=== PATIENT | female | born 1985 | race African-American/Black ===

== ENCOUNTER → 2019-05-13 | Outpatient (CLI) | payer OTHER ==
[~2019-05-13] MED LIST: ACETAMINOPHEN-1 EAC1 PO; APAP500 PO; BELLADONNA500 ML MC; COLACE 100 MG100 MG PO; FLEXERIL PO; GLUCOPHAGE500 MG PO; HYDROCODONE-AP1 EAC6 PO; IBUPROFEN 800800 M1 PO; IROSPAN 24/6 T1 EACH PO; LANOLIN56 GM; NORTREL1 EAC1 PO; PRENATAL; PRILOSEC 20 MG20 MG PO; SERTRALINE HCL50 MG PO; UNICOMPLEX M TA1 TA1 PO; VITAMIN B-12500 MCG PO; VITAMIN D-32000 UNIT PO; ZOFRAN ODT4 MG PO; ZOLOFT50 MG PO
--- NOTE | 2019-05-16 09:45 | SLE ---
[facility] [place] [address] POLYSOMNOGRAPHY STUDY Name: ABBE MARTIN Room #: [facility]#: [id number] Admission: 05/13/19 Attend Phys: Zacarias Segal MD Discharge: Date of : 87 Report #: [id number] THIS REPORT FOR: //name// CC: Zacarias Feliz MD DATE OF SERVICE: 05/13/2019 SLEEP STUDY ATTENDING PHYSICIAN: Dr. Todd Feliz. The patient is 33 years old who weighs 230 pounds with a BMI of 37.1. The patient's [place] score was 11. The patient underwent diagnostic sleep study performed at [facility]. During the night study, the patient spent 490 minutes in bed and slept for 411 minutes with a sleep efficiency of 83%. Sleep latency was 101 minutes, which was prolonged with a REM latency of 88.5 minutes. Sleep architecture showed increased stage 1 and stage 2 sleep, absent slow wave and normal REM sleep. During the night study, the patient had 5 obstructive apneas, 2 central apneas and no mixed apneas and 15 hypopneas. The patient's apnea hypopnea index was only 3.2 per hour with a REM index of 8 per hour and a supine index of 10.1 per hour. EKG monitoring revealed an average heart rate of 84 beats per minute. No sustained arrhythmias observed. PLMS were seen at an index of 7 per hour and 2 per hour caused EEG arousals. Nocturnal oximetry study revealed an average oxygen saturation of 96% with the lowest of 90%. Due to low AHI, the patient did not meet the split night criteria for CPAP initiation. IMPRESSION: 1. No clinically significant sleep disordered breathing. The patient's AHI for the entire night was 3.2 per hour. 2. No clinically significant nocturnal hypoxia. 3. No clinically significant periodic limb movements. RECOMMENDATIONS: [facility] [address] [place] [address] POLYSOMNOGRAPHY STUDY Name: ABBE MARTIN SHWETA Room #: [facility]#: [id number] Admission: 05/13/19 Attend Phys: Zacarias Segal MD Discharge: Date of : 87 Report #: [id number] 1. The patient did not meet the split night criteria for CPAP initiation due to low AHI. 2. If clinical suspicion for other disorders such as narcolepsy or idiopathic hypersomnia is high, then consider doing multiple sleep latency tests. The patient has moderate subjective hypersomnia with an [place] score of 11. 3. Weight loss to the ideal body weight is recommended. 4. Avoid [employer] depressants. 5. Cautioned regarding driving until the patient's hypersomnia is resolved. <ELECTRONICALLY SIGNED> By: Zacarias Segal MD 05/16/19 [id number] Zacarias Segal MD /nt
== END ==
LOC: SLEEPLAB 09:21
DX: G47.33 Obstructive sleep apnea (adult) (pediatric) (principal)

== ENCOUNTER 2019-10-21 23:09 | Emergency (ER) | payer OTHER ==
[~2019-10-21] VITALS: Ht 170.2 cm; Wt 102.1 kg
[2019-10-21] MEDS ORDERED: LEXAPRO 10 MG T10 M1 PO (23:32)
[2019-10-22 00:09] LABS: URINE BILIRUBIN NEGATIVE (Negative); URINE BLOOD TRACE (Negative); URINE CLARITY CLEAR; URINE COLOR YELLOW; URINE GLUCOSE-RANDOM* NEGATIVE (Negative); URINE KETONES NEGATIVE (Negative); URINE LEUKOCYTES-REFLEX NEGATIVE (Negative); URINE NITRITE-REFLEX NEGATIVE (Negative); URINE PROTEIN (DIPSTICK) NEGATIVE (Negative); URINE UROBILINOGEN 0.2 E.U./dl (0.2-1.0)
[2019-10-22] MEDS ORDERED: PENICILLIN VK500 MG PO (00:26)
[2019-10-22] MEDS ORDERED: DIFLUCAN150 MG PO (00:53)
[2019-10-22 01:03] VITALS: BP 154/90
== END 2019-10-22 01:00 | disposition home or self-care (01) ==
LOC: ER 23:09
PROVIDERS: Emergency Medicine
DX: J02.0 Streptococcal pharyngitis (principal); R53.83 Other fatigue; M79.18 Myalgia, other site; R35.0 Frequency of micturition; R51 Headache; R11.10 Vomiting, unspecified; R50.9 Fever, unspecified; K21.9 Gastro-esophageal reflux disease without esophagitis; Z79.899 Other long term (current) drug therapy